=== PATIENT | male | born 1950 | race Caucasian/White ===

== ENCOUNTER 2020-01-22 22:08 | Emergency (ER) | payer OTHER, MEDICAID ==
[~2020-01-22] VITALS: Ht 190.5 cm; Wt 99.8 kg
[2020-01-22 22:25] VITALS: BP_SYST 149
[2020-01-22 23:37] LABS: BASOPHILS % (AUTO) 0.4 % (0.0-2.0); EOSINOPHILS # (AUTO) 0.1 K/uL (0.0-0.4); EOSINOPHILS % (AUTO) 0.8 % (0.0-4.0); HEMATOCRIT 35.3 % (36-54); HEMOGLOBIN 12.2 g/dL (14.0-18.0); LYMPHOCYTES # (AUTO) 1.3 K/uL (1.0-5.5); LYMPHOCYTES % (AUTO) 18.4 % (20.5-51.5); MEAN CORPUSCULAR HEMOGLOBIN 35 pg (27-31); MEAN CORPUSCULAR HGB CONC 35 % (32-36); MEAN CORPUSCULAR VOLUME 102 fL (79.0-98.0); MONOCYTES # (AUTO) 0.8 K/uL (0.0-1.0); MONOCYTES % (AUTO) 10.8 % (1.7-9.3); NEUTROPHILS % (AUTO) 69.6 % (40.0-70.0); PLATELET COUNT (AUTO) 186 K/uL (130-430); RED BLOOD CELL COUNT(AUTO) 3.45 MIL/uL (4.2-6.2); RED CELL DISTRIBUTION WIDTH 13.8 % (9.0-15.0); WHITE BLOOD COUNT (AUTO) 7.2 K/uL (4.8-10.8)
[2020-01-22 23:51] LABS: CALCIUM 10.1 mg/dL (8.4-11.0); CREATININE 1.28 mg/dL (0.55-1.30); POTASSIUM 3.9 mmol/L (3.5-5.1)
[2020-01-22 23:54] LABS: INR 1.1 (0.80-1.20)
[2020-01-22 23:58] LABS: ALBUMIN 3.5 g/dL (3.4-4.8); TOTAL BILIRUBIN 0.8 mg/dL (0.0-1.0)
[2020-01-23 06:15] VITALS: BP_SYST 128
== END 2020-01-23 06:15 | disposition home or self-care (01) ==
LOC: SED 22:08
DX: I89.0 Lymphedema, not elsewhere classified (principal)
CPT/HCPCS: 36415; 71045; 80053; 82550-TC; 83605; 83880; 84484; 85025; 85379; 85610-TC; 85730-TC; 87040-TC; 93005; 93970; 99285